=== PATIENT | male | born 1940 | race Caucasian/White ===

== ENCOUNTER → 2016-06-13 | Day surgery (SDC) | payer MEDICARE, BC ==
[~2016-06-13] MED LIST: ALLO300T2 PO; AMLO5TAB2 PO; ASPI325T PO; ATOR40TA16 PO; BUPIVACAINE HCL PF 0.75% 30 ML VIAL ONE; DOXA1TAB35 PO; MULT1TAB84 PO; PROPOFOL 200 MG/20 ML AMP IV ONE; TOPR50TA PO; TRIAMCINOLONE ACETONIDE 40 MG/ML VIAL I-ARTICULR ONE
--- NOTE | 2016-06-17 22:35 | M6 ---
cc: JAIME BURCH M.D. DATE 06/13/2016 07/01/1945. PROCEDURE Fluoroscopically guided injection bilateral lumbar facet joints (bilateral L3-4, L4-5 and L5-S1) History and physical was completed and signed. Consent was signed. Procedure site was marked. Medications were listed and reconciled. Pain score was recorded. Allergies were noted. Time out was taken. Fluoroscopy time was recorded where applicable. Sedation was administered or directed by Dr. Burch. The patient was given oxygen. The patient was monitored by a registered nurse. Total procedure time was greater than 15 minutes. IV was started, blood pressure cuff, pulse oximeter and EKG were applied. The patient was placed in the prone position on a Cy table sedated with small amounts of propofol titrated to effect. Vital signs were monitored and remained stable throughout the procedure. Fluoroscopy was used to visualize the bilateral lumbar facet joints at L3-4, L4-5 and L5-S1. Separate sterile 3-1/2-inch 25-gauge spinal needles were advanced down to these joints. There was negative aspiration for blood or any other type of fluid. At each location the patient was given 1 mL of Marcaine 0.75% which contained 10 mg of Kenalog. Following the procedure, the patient was taken to the recovery room with stable vital signs neurologically intact. W. MD DOMINGA Lewis/ /7:43 AM /10:27 PM
== END | disposition home or self-care (01) ==
LOC: PHSDC 06:31
PROVIDERS: ATTEND Pain Medicine Interventional Pain Medicine
DX: M54.5 Low back pain (principal)
CPT/HCPCS: 64493; 64494; 64495; 99152; J3301